=== PATIENT | male | born 1985 | race Caucasian/White ===

== ENCOUNTER 2023-04-24 13:58 | Emergency (ER) | payer SELFPAY ==
[2023-04-24] MEDS ORDERED: Ketorolac 30 MG/ML SDV IVPUSH ONE (14:32)
[2023-04-24] MEDS ORDERED: Sodium Chloride 0.9% 1,000 ML IV ONE (14:32)
[2023-04-24 15:22] LABS: BASOPHILS ABSOLUTE AUTO 0.05 K/uL (0.00-0.20); BASOPHILS PERCENT AUTO 0.5 % (0.0-1.0); EOSINOPHILS ABSOLUTE AUTO 0.08 K/uL (0.00-0.45); EOSINOPHILS PERCENT AUTO 0.8 % (0.0-6.0); HEMATOCRIT 40.1 % (42.0-52.0); HEMOGLOBIN 14.8 g/dL (14.0-18.0); IMMATURE GRAN ABSOLUTE AUTO 0.02 K/uL (0.00-0.05); IMMATURE GRAN PERCENT AUTO 0.2 % (0.0-0.4); LYMPHOCYTES ABSOLUTE AUTO 0.61 K/uL (1.00-4.80); LYMPHOCYTES PERCENT AUTO 5.8 % (24.0-44.0); MEAN CORPUSCULAR HEMOGLOBIN 34.5 pg (28.0-32.0); MEAN CORPUSCULAR HGB CONC 36.9 g/dL (32.0-36.0); MEAN CORPUSCULAR VOLUME 93.5 fL (83.0-99.0); MEAN PLATELET VOLUME 8.6 fL (9.4-12.4); MONOCYTES PERCENT AUTO 10.5 % (0.0-8.0); NEUTROPHILS ABSOLUTE AUTO 8.57 K/uL (1.80-7.70); NEUTROPHILS PERCENT AUTO 82.2 % (41.0-71.0); PLATELET COUNT,PLT 195 K/uL (150-400); RED BLOOD CELL COUNT 4.29 M/uL (4.52-5.90); WHITE BLOOD CELL COUNT,WBC 10.43 K/uL (3.9-11.3)
[2023-04-24 15:45] LABS: A/G RATIO 1.1 (0.9-1.6); ALBUMIN 3.8 g/dL (3.4-5.0); BILIRUBIN TOTAL 0.6 mg/dL (0.2-1.0); CALCIUM 8.7 mg/dL (8.5-10.1); CARBON DIOXIDE,CO2 25.7 mmol/L (21.0-32.0); CREATININE 0.7 mg/dL (0.8-1.3); EST CRCL DRUG DOSING (CG) 137.07 mL/min; POTASSIUM,K 3.9 mmol/L (3.5-5.1); PROTEIN TOTAL,TP 7.2 g/dL (6.4-8.2)
[2023-04-24] MEDS ORDERED: Iopamidol 755 MG/ML 500 ML Multipack Bottle IVPUSH STA (16:58)
[2023-04-24] MEDS ORDERED: Doxycycline 100 MG Cap PO ONE (18:06)
[2023-04-24] MEDS ORDERED: Lidocaine 1% PF 2 ML SDV INJECT ONE (18:06)
== END 2023-04-24 19:41 | disposition home or self-care (01) ==
LOC: MW.ED 13:58
DX: L03.211 Cellulitis of face (principal); F17.210 Nicotine dependence, cigarettes, uncomplicated; Z88.8 Allergy status to other drugs, medicaments and biological substances
CPT/HCPCS: 36415; 70491; 80053; 85025; 87040; 96361; 99284; A9270; J1885; J7030; Q9967; 96374; J3490

== ENCOUNTER 2023-09-27 13:04 | Emergency (ER) | payer BC | END 2023-09-27 15:08 | disposition home or self-care (01) | LOC: MW.ED 13:04 | DX: S92.512A Displaced fracture of proximal phalanx of left lesser toe(s), initial encounter for closed fracture (principal); Z88.5 Allergy status to narcotic agent; Z79.899 Other long term (current) drug therapy; W22.8XXA Striking against or struck by other objects, initial encounter; Y93.89 Activity, other specified | CPT/HCPCS: 73610-26-LT; 73610-LT; 73620-26-LT; 73620-LT; 99283 ==

== ENCOUNTER 2024-02-26 19:06 | Emergency (ER) | payer BC ==
[2024-02-26] MEDS: Cephalexin 500 MG Cap PO ONE (19:55)
[2024-02-26] MEDS: Sulfamethoxazole/Trimethoprim 800-160 MG Tab PO ONE (19:55)
== END 2024-02-26 19:59 | disposition home or self-care (01) ==
LOC: MW.ED 19:06
DX: L70.0 Acne vulgaris (principal); F17.210 Nicotine dependence, cigarettes, uncomplicated; Z79.899 Other long term (current) drug therapy; Z88.5 Allergy status to narcotic agent
CPT/HCPCS: 99282; A9270

== ENCOUNTER 2024-05-19 07:59 | Emergency (ER) | payer SELFPAY ==
[2024-05-19] MEDS: Lidocaine 1% with EPINEPHrine 1:100,000 10 ML MDV INJECT ONE (09:16)
== END 2024-05-19 10:27 | disposition home or self-care (01) ==
LOC: MW.ED 07:59
DX: L02.415 Cutaneous abscess of right lower limb (principal); I10 Essential (primary) hypertension; E78.00 Pure hypercholesterolemia, unspecified; F17.210 Nicotine dependence, cigarettes, uncomplicated; Z88.5 Allergy status to narcotic agent; Z79.899 Other long term (current) drug therapy; Z75.8 Other problems related to medical facilities and other health care
CPT/HCPCS: 10060; 99283-25